=== PATIENT | male | born 1960 | race Caucasian/White ===

== ENCOUNTER 2023-09-19 14:30 | Outpatient (CLI) | payer MEDICARE, MEDICAID ==
--- NOTE | 2023-09-19 16:25 | XRAY Report ---
PROCEDURE: Foot 3+V RT INDICATIONS: PAIN IN RIGHT FOOT TECHNIQUE: 3 views of the foot were acquired. COMPARISON: None. FINDINGS: Bones: No acute fractures or dislocations. No suspicious bony lesions. Mild to moderate degenerati ve changes at the 1st metatarsophalangeal joint. Mild scattered degenerative changes at the interphal angeal joints of the toes. Soft tissues: No suspicious soft tissue calcification. 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 No acute osseous abnormality. Reviewed by: Que Davis MD on 09/19/2023 4:24 PM PDT Approved by: Que Davis MD on 09/19/2023 4:24 PM PDT Station ID: [id number]
== END 2023-09-19 14:45 | disposition home or self-care (01) ==
LOC: DI.N 14:30
PROVIDERS: ATTEND Physician Assistant Medical
DX: M19.071 Primary osteoarthritis, right ankle and foot (principal)